=== PATIENT | female | born 1945 | race Caucasian/White ===

== ENCOUNTER 2021-02-08 08:57 | Day surgery (SDC) | payer MEDICARE ==
[2021-02-08] VITALS (16 sets, daily range): BP systolic 105–143; BP diastolic 34–96
[~2021-02-08 08:57] MED LIST: 0.9%NACL 1000ML 1,000 ML IV ONE; AMLO-257 PO; DOCULAX PO; HYDR25TA PO
[2021-02-08] MEDS ORDERED: AZIT500T4 PO (10:37)
[2021-02-08] MEDS ORDERED: LOSA25TA41 PO (10:37)
[2021-02-08] MEDS ORDERED: AMLO-258 PO (10:37)
[2021-02-08] MEDS ORDERED: SUCCINYLCHOLINE 200MG/10ML SYR ONE ×2 (11:03→11:45)
[2021-02-08] MEDS ORDERED: PROPOFOL 10 MG/ML 20ML VIAL IV ONE ×2 (11:03)
[2021-02-08] MEDS ORDERED: IOHEXOL-350 50ML VIAL IV ONE (11:12)
[2021-02-08] MEDS ORDERED: FENTANYL CITRATE PF 50 MCG/1 ML 2ML VIAL ONE (11:45)
[2021-02-08] MEDS ORDERED: INDOMETHACIN 50 MG SUPP.RECT RC SCH (12:30)
== END 2021-02-08 13:55 | disposition home or self-care (01) ==
LOC: ENDO 08:57 → DAH 08:57 → EDSTATUS 09:00 → ENDO 13:55
PROVIDERS: ATTEND Internal Medicine
DX: K83.1 Obstruction of bile duct (principal); Z20.822 Contact with and (suspected) exposure to COVID-19; K83.8 Other specified diseases of biliary tract; I10 Essential (primary) hypertension; K81.0 Acute cholecystitis; N19 Unspecified kidney failure; Z90.49 Acquired absence of other specified parts of digestive tract; Z79.899 Other long term (current) drug therapy
CPT/HCPCS: 43276; 74328; 87635; A4215; A4221; A4222; A4223; A4606; A4620; A4657 ×2; A4663; C1769; C1773; C2625; C9803; J0330 ×2; J2704 ×2; J3010; J7030 ×2; Q9967; 74330

== ENCOUNTER 2021-03-22 09:14 | Day surgery (SDC) | payer MEDICARE ==
[2021-03-22] VITALS (17 sets, daily range): BP systolic 107–147; BP diastolic 43–76
[~2021-03-22 09:14] MED LIST changes: -AMLO-257 PO; +AMLO-258 PO; +IBUP200C5 PO; +LOSA25TA41 PO
[2021-03-22] MEDS ORDERED: IOHEXOL-350 50ML VIAL IV ONE (11:05)
[2021-03-22] MEDS ORDERED: SUCCINYLCHOLINE 200MG/10ML SYR ONE (12:08)
[2021-03-22] MEDS ORDERED: LIDOCAINE HCL 1% 20 ML VIAL ONE (12:08)
[2021-03-22] MEDS ORDERED: FENTANYL CITRATE PF 50 MCG/1 ML 2ML VIAL ONE (12:08)
[2021-03-22] MEDS ORDERED: ONDANSETRON 4MG INJ ONE ×2 (12:08→14:01)
[2021-03-22] MEDS ORDERED: MIDAZOLAM HCL 1 MG/ML 2ML VIAL ONE (12:08)
[2021-03-22] MEDS ORDERED: PROPOFOL 10 MG/ML 20ML VIAL IV ONE ×3 (12:08→12:42)
[2021-03-22] MEDS ORDERED: INDOMETHACIN 50 MG SUPP.RECT RC SCH (13:30)
== END 2021-03-22 15:35 | disposition home or self-care (01) ==
LOC: DAH 09:14 → ENDO 09:14
PROVIDERS: ATTEND Internal Medicine
DX: K80.42 Calculus of bile duct with acute cholecystitis without obstruction (principal); Z20.822 Contact with and (suspected) exposure to COVID-19; I10 Essential (primary) hypertension; N19 Unspecified kidney failure; Z88.6 Allergy status to analgesic agent; Z90.49 Acquired absence of other specified parts of digestive tract
CPT/HCPCS: 43264; 43273; 43275; 74328; 87635; 93005; A4215 ×3; A4216; A4221; A4222; A4223; A4606; A4657 ×2; A4663; C1769; C1773; C9803; J0330; J2250; J2405 ×2; J2704 ×2; J3010; J7030; Q9967; 74330

== ENCOUNTER 2021-04-26 10:00 | Day surgery (SDC) | payer MEDICARE ==
[~2021-04-26] VITALS: Ht 157.5 cm; Wt 63.5 kg
[2021-04-26] VITALS (13 sets, daily range): BP systolic 149–169; BP diastolic 52–74
[2021-04-26] MEDS ORDERED: AMOX1TAB16 PO (10:36)
[2021-04-26] MEDS ORDERED: METR-172 PO (10:36)
[2021-04-26] MEDS ORDERED: INDOMETHACIN 50 MG SUPP.RECT RC SCH (11:00)
[2021-04-26] MEDS ORDERED: IOHEXOL-350 50ML VIAL IV ONE (11:18)
[2021-04-26] MEDS ORDERED: ZOSYN 3.375GM+NS 50ML 50 ML ONE (12:01)
== END 2021-04-26 13:25 | disposition home or self-care (01) ==
LOC: ENDO 10:00 → DAH 10:00 → ENDO 13:25
PROVIDERS: ATTEND Internal Medicine
DX: K80.42 Calculus of bile duct with acute cholecystitis without obstruction (principal); Z20.822 Contact with and (suspected) exposure to COVID-19; I10 Essential (primary) hypertension; N19 Unspecified kidney failure; Z88.6 Allergy status to analgesic agent; Z90.49 Acquired absence of other specified parts of digestive tract; Z79.899 Other long term (current) drug therapy; Z98.890 Other specified postprocedural states
CPT/HCPCS: 43274; 74328; 87635; 93005; A4215 ×2; A4221; A4222; A4223; A4606; A4657; A4663; C1769; C1773; C2625; C9803; J2543; J7030; Q9967; 74330